=== PATIENT | male | born 1985 | race Two or more races ===

== ENCOUNTER 2025-03-18 06:10 | Day surgery (SDC) | payer MEDICAID, SELFPAY ==
[2025-03-17 07:55] VITALS: BMI 29.0
[2025-03-17 09:05] LABS: Basophils % (Auto) 0 % (0-2.5); Eosinophils # (Auto) 0.1 Thou/mm3 (0.0-0.5); Eosinophils % (Auto) 2 % (0-10); Hematocrit 39.8 % (41.0-53.0); Hemoglobin 14.1 g/dL (13.5-16.0); Immature Granulocytes % (Auto) 0 % (0-0); Immature Granulocytes Auto 0.02 Thou/mm3 (0.00-0.00); Lymphocytes # (Auto) 2.9 Thou/mm3 (1.0-4.8); Lymphocytes % (Auto) 44 % (10-50); Mean Corpuscular HGB Conc 35.4 g/dl (31.0-37.0); Mean Corpuscular Hemoglobin 30.4 pg (25.0-35.0); Mean Corpuscular Volume 86 fL (80-100); Monocytes # (Auto) 0.6 Thou/mm3 (0.0-0.8); Monocytes % (Auto) 9 % (0-12); Neutrophils % (Auto) 45 % (37-80); Nucleated Red Blood Cell % 0 /100 WBC (0); Platelet Count 202 Thou/mm3 (140-440); Red Blood Count 4.64 Miln/mm3 (4.50-5.90); White Blood Count 6.7 Thou/mm3 (3.8-10.6)
[2025-03-17 09:12] LABS: Partial Thromboplastin Time 29.6 Seconds (22.0-36.0); Prothrombin Time 10.8 Seconds (9.0-12.2)
[2025-03-17 09:19] LABS: Alanine Aminotransferase 18 U/L (10-49); Albumin, Serum 4.6 gm/dL (3.5-5.0); Albumin/Globulin Ratio 1.6 (1.2-2.2); Alkaline Phosphatase 90 U/L (46-116); Anion Gap 8 (7-16); Aspartate Amino Transferase 25 U/L (0-34); BUN/Creatinine Ratio 12 Ratio (12-20); Bilirubin,Total 0.5 mg/dL (0.3-1.2); Blood Urea Nitrogen 13 mg/dL (9-23); Calcium 9.6 mg/dL (8.3-10.6); Calcium (Corrected) 9.6 mg/dL (8.5-10.1); Carbon Dioxide 28.2 mMol/L (20.0-31.0); Chloride 102 mMol/L (98-107); Creatinine (Component) 1.1 mg/dL (0.6-1.3); Estimated Creatinine Clearance 93.5 mL/min (>60); Globulin 2.8 gm/dL (2.3-3.5); Glucose 98 mg/dL (74-106); Osmolality,Calculated 275 (275-295); Potassium 3.6 mMol/L (3.4-5.1); Sodium 138 mMol/L (136-145); Total Protein 7.4 gm/dL (5.7-8.2); eGFR > 60 See Note
[2025-03-18] VITALS (9 sets, daily range): BP systolic 114–136; BP diastolic 71–93; PULSE 70–92; RESP 12–19; TEMP 36.5–36.8; O2SAT 95–100; BMI 28.8
--- NOTE | 2025-03-18 07:40 | SUR.PREOP ---
Patient expressed gratitude for prayer before their procedure.
--- NOTE | 2025-03-18 10:11 | PD.SUROPNT ---
Date of Procedure 03/18/25 Pre Op Diagnosis Symptomatic cholelithiasis Post Op Diagnosis Same Procedure Laparoscopic cholecystectomy Findings Patient was found to have a noninflamed gallbladder with a large stone in Procedure Description After endotracheal anesthesia was given the patient was placed in supine position and the abdomen was prepped with chloroprep solution and draped in a sterile manner. After time out was performed I injected a few cc of of half percent Marcaine with epinephrine below the umbilicus and I made an incision for about 3 cm in length. The fascia was cleaned and Veress needle was inserted to create a pneumoperitoneum up to 15 mmHg. Then introduced a 12 mm trocar and a 10 mm camera through the fascia and I inspected the intra-abdominal organs as well as the gallbladder and the liver. Another 5 mm trocar was inserted in the epigastric region under direct vision after injecting some local anesthesia. At this time the patient was kept in reverse Trendelenburg position with the left lateral tilt. The third 5 mm trocar was inserted over the mid axillary line under direct vision and a Bimal and Mily grasper was used to hold the fundus of the gallbladder. The retraction was carried out by the assistant loan processor moving the fundus of the gallbladder towards the right shoulder of the patient to create enough traction. I placed a another 5 mm trocar in the midaxillary line just lateral to the rectus muscle under direct vision. I used a fenestrated grasper to retract the neck of the gallbladder laterally towards the patient's right hip. The Calot's triangle was exposed and I achieved the critical view of safety as follows: I dissected out the fatty tissue from the hepatocystic triangle and cleared this area. I also dissected inferior and posterior to the gallbladder to identify the cystic duct and the gallbladder wall. Then superiorly I dissected along the cystic plate up to lower one third third of the gallbladder to lift the gallbladder from the liver. At this time I confirmed that only 2 structures entering the gallbladder were cystic artery and the cystic duct. The common duct was seen distally but no dissection was carried out around the duct. I did not see any need for operative cholangiogram in this patient. The cystic duct was clipped doubly and then divided and cystic artery was similarly dealt with. Then the gallbladder was removed from the liver bed using Harmonic fausto to control the small blood vessels as the dissection proceeded. Then the gallbladder was from the liver bed completely and delivered through the umbilical port using an Endopouch. The liver bed was coagulated with cautery to obtain satisfactory hemostasis. The trocars were pulled out from the abdominal cavity and the fascia at the umbilical incision was closed with interrupted 0 Ethibond. Subcutaneous tissues was closed with 3-0 chromic and injected a few cc of half percent Marcaine with epinephrine and the skin was closed with interrupted 4-0 nylon stitches at all the trocar sites. Dressing was applied with 2 x 2 and Tegaderm. Patient tolerated the procedure well and returned to recovery room in stable condition. Anesthesia GETA Pathology / specimen Other (Gallbladder and the stones) IVF Infused 1,000 Estimated Blood Loss 40 Condition Stable Disposition PACU Surgeon Genevieve Wade MD Surgical Staff Operation Date: 03/18/25 08:30 Case Staff Anesthesiologist: Neto Grider RN First Assistant: Jamila Laguerre
--- NOTE | 2025-03-18 10:21 | SUR.PHASEI ---
0955: Pt [place] [facility] [place]. Report from Rosina MOLINA. Pt groggy. Is easily aroused. Resp even, unlabored. VS stable. Surgical sites x4 to abdomen. Dressings to site dry, clean, intact with no swelling, discoloration. No c/o pain. 1020: Pt has been resting with no complaints voiced. Resp even, unlabored. VS stable. Dressings remain dry, clean, intact with no swelling or discoloration to sites. Denies pain.
--- NOTE | 2025-03-18 10:39 | SUR.PHASEII ---
1025: Pt more awake, alert. Resp even, unlabored. VS stable. No c/o pain. Dressings remain dry, clean, intact. Sites without swelling, discoloration. Pt sitting up tolerating po fluids with no difficulty swallowing and no n/v.
--- NOTE | 2025-03-18 11:15 | SUR.PHASEII ---
1110: Pt fully awake, oriented x3. VS stable. Surgical sites dressings remain dry, clean, intact. No changes to surgical sites. Pt assisted to restroom. Ambulation steady. Pt and stated understanding of discharge instructions. Pt also instructed to case picker his prescription at [facility]. Pt discharged from [facility] in stable condition.
--- NOTE | 2025-03-18 11:26 | ESHP_ITS ---
RE: PRATIK TOVAR : 1985 DATE OF ADMISSION: 03/18/2025 DATE OF SURGERY: 03/18/2025 HISTORY OF PRESENT ILLNESS: This patient was seen by me in the [facility] on 01/04/2025. This 39-year-old male was seen because of symptomatic cholelithiasis. The patient was diagnosed with gallstones in 2019, but he has never had surgery and has been dealing with it for the past 5 years. He had a couple of episodes of severe pain in November of this year and he went to [facility] and was advised to have surgery. He also gives a history of seeing a surgeon 4 years ago, but he postponed it. The patient was therefore referred to the [facility] from [place]. The patient denies any history of jaundice, fever, or chills. He denies any history of gallstones in the family. PAST MEDICAL HISTORY: Essentially unremarkable. PHYSICAL EXAMINATION: GENERAL: Revealed well-developed, well-nourished male who appears to be in stated age. VITAL SIGNS: He is 5 feet 7 inches tall, weighing 183 pounds with BMI of 28.12. Pulse is 60, temperature is 97.5, BP is 107/70. HEENT: Examination of head is normal. Eyes, ears, nose, and throat were normal. ENT: Negative. NECK: Normal. Thyroid normal. LUNGS: Revealed good breath sounds on both sides. HEART: Sinus rhythm. ABDOMEN: Showed no tenderness in the right upper quadrant or anywhere else. IMAGING: I reviewed the ultrasound done at [facility] in 2023, which revealed large calculus measuring 1.7 cm in diameter. Gallbladder wall also was thickened. IMPRESSION: Calculus cholecystitis. COURSE OF ACTION: Because the patient has recurrent symptoms, I advised him to have laparoscopic surgery. The patient said he has tried some bile acids, but it is not helping him. I told him about the laparoscopic surgery and the potential complications like bile duct injury, bleeding, need for open cholecystectomy, etc., and he is agreeable. DT: 10:23:37 TT: 11:16:00 Ref: [id number] - TID: [id number]
== END 2025-03-18 11:10 | disposition home or self-care (01) ==
PROVIDERS: PCP Family Medicine; Referring Provider Surgery; Visit Provider Surgery
PROC: 0FT44ZZ Resection of Gallbladder, Percutaneous Endoscopic Approach (ICD-10-PCS; CPT 47562; principal; 2025-03-18 08:30)
DX: K80.20 Calculus of gallbladder without cholecystitis without obstruction (principal)
CPT/HCPCS: 47562; 36415; 80053; 85025; 85610; 85730; A4217; A4649; J0131; J1100; J1885; J2250; J2405; J2704; J3010; J3490; A9270